=== PATIENT | female | born 1970 | race Hispanic/Latino ===

== ENCOUNTER 2017-02-10 23:16 | Observation (INO) | payer MEDICAID, OTHER ==
[2017-02-10 23:17] VITALS: BMI 26.4
[2017-02-10 23:29] VITALS: BP 102/62; PULSE 94; RESP 16; TEMP 98; O2SAT 98
--- NOTE | 2017-02-10 23:30 | ED PDOC ---
HPI: Psych/Substance Abuse Time Seen by Provider: 02/10/17 23:22 Chief Complaint (Nursing): Alcohol Ingestion ED Caveat: Acuity of Condition History Per: Patient History/Exam Limitations: intoxication Onset/Duration Of Symptoms: Hrs Modifying Factor(s): Alcohol Additional Complaint(s): Pt. was at [facility] when other patrons called EMS because patient was intoxicated, patient attempted to run away from police, was noticed to have unsteady gait, however patient has a RLE prosthesis. Pt. admits to drinking and is currently A&O x3, has no SI/HI and wishes to go home. Past Medical History Reviewed: Historical Data, Nursing Documentation, Vital Signs - Medical History PMH: Anxiety, COPD (Emphysema), Depression, Emphysema, Fractures (rt foot), Hepatitis (HEP-C) Denies: HIV, HTN, Chronic Kidney Disease, Seizures, Sexually Transmitted Disease - Surgical History Surgical History: Appendectomy (1989) - Family History Family History: States: Unknown Family Hx - Immunization History Hx Tetanus Toxoid Vaccination: Yes Hx Influenza Vaccination: No Hx Pneumococcal Vaccination: No - Home Medications Home Medications: Ambulatory Orders Medication Instructions Recorded Klonopin 2 mg PO TID 06/04/16 Gabapentin [Neurontin] 300 mg PO TID #90 cap 10/09/16 Oxycodone HCl [Roxicodone] 30 mg PO QID 11/15/16 DiphenhydrAMINE [Benadryl] 25 mg PO Q4 PRN #30 cap 02/01/17 Mupirocin 2% Cream [Bactroban 1 applic EXT BID #1 tube 02/01/17 Cream] Sulfamethoxazole/Trimethoprim 1 tab PO BID #14 tab 02/01/17 [Bactrim DS 800 mg-160 mg] - Allergies Allergies/Adverse Reactions: Allergies Allergy/AdvReac Type Severity Reaction Status Date / Time No Known Allergies Allergy Verified 11/15/16 18:54 Review of Systems ROS Statement: Except As Marked, All Systems Reviewed And Found Negative Physical Exam - Reviewed Nursing Documentation Reviewed: Yes - Physical Exam Appears: Positive for: Well, Non-toxic, No Acute Distress Head Exam: Positive for: ATRAUMATIC, NORMAL INSPECTION, NORMOCEPHALIC Skin: Positive for: Normal Color, Warm, DRY Eye Exam: Positive for: EOMI, Normal appearance, PERRL ENT: Positive for: Normal ENT Inspection Neck: Positive for: Normal, Painless ROM Cardiovascular/Chest: Positive for: Regular Rate, Rhythm Respiratory: Positive for: CNT, Normal Breath Sounds Gastrointestinal/Abdominal: Positive for: Normal Exam, Bowel Sounds, Soft Back: Positive for: Normal Inspection Extremity: Positive for: Normal ROM, Other (RLE prosthesis) Neurologic/Psych: Positive for: Alert, Oriented Medical Decision Making Medical Decision Making: Patient with mild intoxication, however well appearing with no complaints ( resolved "stomach ache"), able to walk and states she will take a cab home. Disposition - Clinical Impression Clinical Impression: Alcohol abuse - Disposition Referrals: Alcoholics Anonymous [Outside] Disposition Time: 23:30 Condition: STABLE Instructions: Abuse of Alcohol (ED)
== END 2017-02-11 04:39 | disposition home or self-care (01) ==
LOC: H.ER 23:16 → H.EROBSV 23:38
PROVIDERS: ADMIT Emergency Medicine; ATTEND Emergency Medicine
DX: F10.10 Alcohol abuse, uncomplicated (principal); J44.9 Chronic obstructive pulmonary disease, unspecified; Z79.899 Other long term (current) drug therapy; F41.9 Anxiety disorder, unspecified